=== PATIENT | female | born 2000 | race Caucasian/White ===

== ENCOUNTER 2022-04-21 18:36 | Emergency (ER) | payer SELFPAY ==
[~2022-04-21] VITALS: Ht 157.5 cm; Wt 86.1 kg
[2022-04-21 18:45] VITALS: BP 150/91
== END 2022-04-21 21:13 | disposition left against medical advice (07) ==
LOC: M ED 18:36
DX: Z53.21 Procedure and treatment not carried out due to patient leaving prior to being seen by health care provider (principal)

== ENCOUNTER → 2022-06-15 | Outpatient (REF) | payer OTHER | LOC: M LAB REF 21:28 | PROVIDERS: ATTEND Physician Assistant Medical | DX: J02.9 Acute pharyngitis, unspecified (principal) ==

== ENCOUNTER → 2022-09-08 | Outpatient (CLI) | payer OTHER | LOC: M PLAIMG 11:12 | PROVIDERS: ATTEND Nurse Practitioner Primary Care | DX: M25.562 Pain in left knee (principal) ==